=== PATIENT | male | born 1980 | race Hispanic/Latino ===

== ENCOUNTER 2018-07-23 08:55 | Emergency (ER) | payer SELFPAY ==
[2018-07-23 09:13] VITALS: TEMP 97.8
--- NOTE | 2018-07-23 10:03 | RAD ---
EXAM DESCRIPTION: Abdomen Series CLINICAL HISTORY: 37 years Male, right upper quadrant abdominal pain progressive 2 weeks COMPARISON: None available Findings: The imaged chest shows normal heart size. Pulmonary vascularity is within normal limits. Lungs are clear without focal consolidative infiltrates. No pleural effusion. No pneumothorax. There is a nonobstructive bowel gas pattern. Large amount of fecal material is seen within the ascending colon. Small to moderate amount of fecal material is present in the transverse and descending colon. No evidence for pneumatosis intestinalis, portal venous gas, or free air under the diaphragm. No suspicious intra-abdominal calcifications. No acute osseous abnormality. IMPRESSION: 1. Large amount of fecal material in the ascending colon. Small to moderate amount of fecal material is present in the transverse and descending colon. Please correlate clinically for constipation. Otherwise, no radiographic evidence for acute intra-abdominal process. 2. No radiographic evidence for acute cardiopulmonary process. Electronically signed by: Naveen Urbina MD 07/23/2018 10:01 AM CDT
[2018-07-23] MEDS ORDERED: ALUM & MAG HYDROX-SIMETHICONE 30 ML, LIDOCAINE VISCOUS 2% 15 ML PO ONE ×2 (10:06)
[2018-07-23] MEDS ORDERED: LIDOCAINE HCL 2% (MOUTH-THROAT) 15 ML UD ONE (10:36)
[2018-07-23] MEDS ORDERED: ALUM & MAG HYDROX-SIMETHICONE 30 ML UD ONE (10:36)
--- NOTE | 2018-07-23 11:46 | US ---
EXAM DESCRIPTION: Abdomen,Limited: ULTRASOUND. CLINICAL HISTORY: ruq pain worse 1 week with food COMPARISON: Abdominal radiographs on the same visit. TECHNIQUE: Transabdominal scannin-dimensional and Doppler modes. FINDINGS: Gallbladder: normal size, shape, echogenicity; no intraluminal stones or sludge. No fluid around the gallbladder. No wall thickening. 2.5 mm. Non-tender with transducer pressure. Common bile duct: caliber 5.9 mm within normal limits. Liver: Heterogeneously increased echogenicity; contour liver capsule smooth where seen. No fluid around the liver. Intrahepatic biliary ducts normal caliber. Doppler hepatopedal flow and normal caliber portal vein.. Hypoechoic mass subcapsular in the left lobe minimally vascular and somewhat lobulated margins measuring 3.3 x 2.6 x 2.3 cm. Long axis right lobe 16.3 Pancreas: normal size and echogenicity. Duct not seen. Proximal abdominal aorta: 1.6 cm.. IVC: visualized and normal caliber. Right kidney: long axis measures 9.6 cm. Normal Echogenicity. Normal cortical thickness. No hydronephrosis IMPRESSION: 1. Liver with heterogeneous steatosis. 3.3 cm hypoechoic lesion minimally vascular. This could represent inflammatory or infectious lesion, atypical hemangioma, or tumor. Consider nonemergent follow-up CT scan without and with IV contrast (triple phase technique). No ascites. Normal ducts and vascularity. Normal common bile duct. 2. Normal ultrasound of the gallbladder pancreas and right kidney. Normal caliber of the proximal aorta and IVC. Electronically signed by: Joe Florez MD 07/23/2018 11:45 AM CDT
--- NOTE | 2018-07-23 14:01 | CT ---
EXAM DESCRIPTION: CT ABDOMEN AND PELVIS WITHOUT AND WITH CONTRAST CLINICAL HISTORY: liver mass, ruq pain COMPARISON: Direct comparison with sonogram from July 23, 2018 TECHNIQUE: CT of the abdomen and pelvis are performed prior to and during IV bolus administration of 100 mL of IV contrast. FINDINGS: The lung bases are clear of infiltrate. There is a corresponding abnormality in the left lobe of the liver when compared with the ultrasound. This is only seen on the arterial phase is an intensely and uniformly enhancing mass measuring 3.0 x 2.3 cm in size along the inferior margin of the left lobe just medial to the falciform. The finding is isodense on precontrast and delayed postcontrast imaging. There is no other parenchymal abnormality of the liver. Spleen, pancreas, and kidneys are unremarkable. There is no lymphadenopathy, inflammation, or free fluid observed. IMPRESSION: The mass described on ultrasound is identified on arterial phase imaging of the liver and is almost certainly focal nodular hyperplasia which is a benign hepatic tumor caused by hyperplastic response to localized vascular abnormality. MRI of the liver with gadoxetate (Eovist) enhancement is the most specific test to confirm the diagnosis. Routine hepatic MRI with gadolinium enhancement is sensitive but not as specific. Recommend MRI of the liver preferably with Eovist. This exam was performed according to our departmental dose-optimization program, which includes automated exposure control, adjustment of the mA and/or kV according to patient size and/or use of iterative reconstruction technique. Electronically signed by: Joaquin Edwards MD 07/23/2018 1:59 PM CDT
[2018-07-23] MEDS ORDERED: MAGNESIUM HYDROXIDE 30 ML UD PO ONE (14:08)
--- NOTE | 2018-07-23 14:11 | ED.PDOC ---
History of Present Illness - General Chief Complaint: Abdominal Pain Stated Complaint: RUQ PAIN Time Seen by Provider: 07/23/18 09:01 Source: patient Exam Limitations: no limitations - History of Present Illness Initial Comments: the patient's a 37-year-old male presenting to the emergency room secondary to one to 2 weeks worth of intermittent but progressive epigastric and right upper quadrant pain. No vomiting but eating does make it worse. No syncopal or near syncope. No fever. No previous abdominal surgeries. No previous food intolerances. No back pain. No difficulties with urination. No history of any cancer. Timing/Duration: 1 week Severity: moderate Improving Factors: nothing Worsening Factors: eating Associated Symptoms: denies symptoms Allergies/Adverse Reactions: Allergies NO KNOWN ALLERGY Allergy (Verified 07/23/18 09:04) Home Medications: Ambulatory Orders Dicyclomine HCl 20 mg PO QID 07/23/18 Famotidine 20 mg PO DAILY #30 tab 07/23/18 Sucralfate Tab [Carafate Tab] 1 gm PO QID #120 tab 07/23/18 Review of Systems - Review of Systems Constitutional: States: no symptoms reported EENTM: States: no symptoms reported Respiratory: States: no symptoms reported Cardiology: States: no symptoms reported Gastrointestinal/Abdominal: States: see HPI Genitourinary: States: no symptoms reported Musculoskeletal: States: no symptoms reported Skin: States: no symptoms reported Neurological: States: no symptoms reported Endocrine: States: no symptoms reported All other Systems: No Change from Baseline Past Medical History (General) - Patient Medical History Hx Stroke: No Hx Cardiac Disorders: No Hx Congestive Heart Failure: No Hx Diabetes: No Surgical History: no surgical history Family Medical History - Family History Mother Family History: No Known Physical Exam - Physical Exam General Appearance: Alert, Comfortable, No apparent distress Eye Exam: bilateral normal Ears, Nose, Throat: hearing grossly normal, normal ENT inspection, normal pharynx Neck: full range of motion, supple, normal inspection Respiratory: lungs clear, normal breath sounds, no respiratory distress, no accessory muscle use Cardiovascular/Chest: normal peripheral pulses, regular rate, rhythm, no edema Peripheral Pulses: radial,right: 2+, radial,left: 2+ Gastrointestinal/Abdominal: soft, other - mild to moderate epigastric and right upper quadrant discomfort palpation. Rectal Exam: deferred Back Exam: normal inspection, no CVA tenderness Extremity: normal range of motion, non-tender, normal inspection, no pedal edema , normal capillary refill Neurologic: peer specialist II-XII nml as tested, alert, normal mood/affect, oriented x 3 Skin Exam: normal color Comments: Vital Signs - 24 hr 07/23/18 07/23/18 07/23/18 09:00 09:30 10:30 Temperature 97.8 F Pulse Rate [ 63 59 L 54 L left brachial] Respiratory 20 18 16 Rate Blood Pressure 121/81 121/81 104/64 [left brachial] O2 Sat by Pulse 98 99 99 Oximetry 07/23/18 11:30 Temperature Pulse Rate [ 60 left brachial] Respiratory 16 Rate Blood Pressure 118/77 [left brachial] O2 Sat by Pulse 99 Oximetry Progress - Progress Progress: 07/23/18 14:11 the patient is a 37-year-old male presenting to the emergency room secondary to epigastric and right upper quadrant pain progressive over the last couple weeks. He does have significant right-sided constipation and was given a dose of milk of magnesia here. He needs to take MiraLAX 17 g daily for at least the next week to get cleaned out. he Can take some castor oil additionally to help with this. He needs to keep himself well hydrated and eat a high fiber diet. Additionally the patient does appear to have some significant gastritis and is going to be placed on Carafate and Pepcid for the next month. Imaging studies revealed what is most likely 3 cm area of focal nodular hyperplasia on the liver. It is recommended that he get a MRI in the near future to confirm this diagnosis. This is not likely the source of his pain. This is likely simply an incidental finding. ER warnings were given. He needs to follow-up with a primary care doctor of his choice to set this up in a couple of weeks. - Results/Orders Results/Orders: abdominal series shows significant constipation. CT scan of the abdomen and pelvis with and without contrast showing 3 cm area on the liver consistent with focal nodular hyperplasia. This was first noted on right upper quadrant ultrasound. No evidence of any gallbladder disease. No evidence of infection otherwise. Laboratory Results - last 24 hr 07/23/18 07/23/18 07/23/18 09:13 09:21 09:35 WBC 5.6 RBC 5.34 Hgb 18.1 H Hct 52.3 H MCV 98.0 H MCH 33.8 H MCHC 34.7 RDW 13.2 Plt Count 297 MPV 7.3 L Absolute Neuts (auto) 3.10 Absolute Lymphs (auto) 1.60 Absolute Monos (auto) 0.50 Absolute Eos (auto) 0.40 Absolute Basos (auto) 0.00 Neutrophils % 55.8 Lymphocytes % 28.3 Monocytes % 8.4 Eosinophils % 6.7 H Basophils % 0.8 Sodium 139 Potassium 3.8 Chloride 106 Carbon Dioxide 26 Anion Gap 10.8 L BUN 11 Creatinine 0.79 BUN/Creatinine Ratio 13.9 Random Glucose 108 H Serum Osmolality 277.5 Lactic Acid Calcium 9.5 Total Bilirubin 0.5 AST 39 ALT 85 H Alkaline Phosphatase 96 Creatine Kinase 146 CK-MB (CK-2) 2.2 CK-MB (CK-2) % Not Reportable Troponin I < 0.02 Serum Total Protein 8.0 Albumin 4.4 Globulin 3.6 H Albumin/Globulin Ratio 1.2 Amylase 33 Lipase 33 Urine Color Straw Urine Appearance Clear Urine pH 7.0 Ur Specific Hancock 1.010 Urine Protein Negative Urine Glucose (UA) Negative Urine Ketones Negative Urine Blood Negative Urine Nitrite Negative Urine Bilirubin Negative Urine Urobilinogen 0.2 Ur Leukocyte Esterase Negative Urine RBC 0 Urine WBC 0 Ur Epithelial Cells 0 Urine Bacteria 0 07/23/18 09:35 WBC RBC Hgb Hct MCV MCH MCHC RDW Plt Count MPV Absolute Neuts (auto) Absolute Lymphs (auto) Absolute Monos (auto) Absolute Eos (auto) Absolute Basos (auto) Neutrophils % Lymphocytes % Monocytes % Eosinophils % Basophils % Sodium Potassium Chloride Carbon Dioxide Anion Gap BUN Creatinine BUN/Creatinine Ratio Random Glucose Serum Osmolality Lactic Acid 1.2 Calcium Total Bilirubin AST ALT Alkaline Phosphatase Creatine Kinase CK-MB (CK-2) CK-MB (CK-2) % Troponin I Serum Total Protein Albumin Globulin Albumin/Globulin Ratio Amylase Lipase Urine Color Urine Appearance Urine pH Ur Specific H[place] Urine Protein Urine Glucose (UA) Urine Ketones Urine Blood Urine Nitrite Urine Bilirubin Urine Urobilinogen Ur Leukocyte Esterase Urine RBC Urine WBC Ur Epithelial Cells Urine Bacteria Departure - Departure Clinical Impression: Focal nodular hyperplasia of liver Gastritis Qualifiers: Gastritis type: unspecified gastritis Chronicity: acute Gastritis bleeding: without bleeding Qualified Code(s): K29.00 - Acute gastritis without bleeding Constipation Qualifiers: Constipation type: unspecified constipation type Qualified Code(s): K59.00 - Constipation, unspecified Disposition: Discharge to Home or Self Care Condition: Good Departure Forms: ED Discharge - Pt. Copy, Patient Portal Self Enrollment Instructions: Constipation, Adult (DC), Gastritis Diet: regular diet - High-fiber Activity: increase activity as tolerated Prescriptions: Famotidine 20 mg PO DAILY #30 tab Sucralfate Tab [Carafate Tab] 1 gm PO QID #120 tab Home Medications: Ambulatory Orders Dicyclomine HCl 20 mg PO QID 07/23/18 Famotidine 20 mg PO DAILY #30 tab 07/23/18 Sucralfate Tab [Carafate Tab] 1 gm PO QID #120 tab 07/23/18 Additional Instructions: the patient is a 37-year-old male presenting to the emergency room secondary to epigastric and right upper quadrant pain progressive over the last couple weeks. He does have significant right-sided constipation and was given a dose of milk of magnesia here. He needs to take MiraLAX 17 g daily for at least the next week to get cleaned out. he Can take some castor oil additionally to help with this. He needs to keep himself well hydrated and eat a high fiber diet. Additionally the patient does appear to have some significant gastritis and is going to be placed on Carafate and Pepcid for the next month. Imaging studies revealed what is most likely 3 cm area of focal nodular hyperplasia on the liver. It is recommended that he get a MRI in the near future to confirm this diagnosis. This is not likely the source of his pain. This is likely simply an incidental finding. ER warnings were given. He needs to follow-up with a primary care doctor of his choice to set this up in a couple of weeks.
[2018-07-23 14:14] VITALS: BP 122/76
[2018-07-23 15:10] VITALS: O2SAT 97
== END 2018-07-23 14:20 | disposition home or self-care (01) ==
LOC: ER 08:55
DX: K29.00 Acute gastritis without bleeding (principal); K59.00 Constipation, unspecified; K76.89 Other specified diseases of liver